=== PATIENT | male | born 1985 | race Caucasian/White ===

== ENCOUNTER → 2023-09-17 14:01 | Outpatient (BNVA) | payer BC, MEDICAID, SELFPAY | PROVIDERS: Family Provider Family Medicine; PCP Family Medicine; Visit Provider Podiatrist Foot & Ankle Surgery | DX: M25.572 Pain in left ankle and joints of left foot (principal); M25.372 Other instability, left ankle | CPT/HCPCS: 73610; 99203 ==

== ENCOUNTER 2023-11-25 10:03 | Outpatient (CLI) | payer BC, MEDICAID, SELFPAY ==
--- NOTE | 2023-11-25 10:15 | MR_ITS ---
WS: [id number] MRI LEFT ANKLE WITHOUT CONTRAST. COMPARISON: LEFT ankle radiograph 09/17/2023 Multiplanar, multisequence imaging is performed without contrast. No acute fracture or marrow edema. There is mild narrowing of the tibiotalar joint space. Normal synd esmosis. No osteochondral lesions. There is a very slight increased T2 signal of edema noted in the d istal fibular tip. No fracture. Increased T2 signal and a small cyst versus ganglion in the posterior talofibular ligament. Ligament is thickened with increased signal although not completely torn. Seen best on axial T1 sequence there is a probable small avulsion fracture from the distal anterior fibul a. This fracture is associated with the anterior talofibular ligament which appears partially torn an d avulsed. Increase striations in the deltoid ligament which are normal. The peroneal tendons normal course and caliber. No tenosynovitis. The Achilles tendon is normal. The flexor and extensor tendons tendons are normal. MR/MR ankle LT wo con* [id number] IMPRESSION: 1. Normal peroneal tendons. 2. Partial tear involving the anterior talofibular ligament and possible small evulsion fracture from the fibula. 3. Increased T2 signal and a possible ganglion in the posterior talofibular li gament. No complete tear. 4. No fractures. Very mild marrow edema in the distal fibular tip.
== END 2023-11-25 10:04 | disposition home or self-care (01) ==
LOC: RAD 10:03
PROVIDERS: Family Provider Family Medicine; PCP Family Medicine; Visit Provider Podiatrist Foot & Ankle Surgery
DX: M25.372 Other instability, left ankle (principal); S93.492A Sprain of other ligament of left ankle, initial encounter; X58.XXXA Exposure to other specified factors, initial encounter
CPT/HCPCS: 73721

== ENCOUNTER 2023-12-16 12:07 | Outpatient (CLI) | payer BC, MEDICAID, SELFPAY ==
--- NOTE | 2023-12-16 12:14 | MR_ITS ---
WS: [id number] MRI HEAD WITH CONTRAST TECHNIQUE: Sagittal T1, T2 axial, T2 axial FLAIR, axial susceptibility weighted imaging, axial diffus ion weighted images, and coronal T2 images were obtained. Pre and post-T1 axial and post T1 coronal i mages. ADC and FSPGR images. CLINICAL INFORMATION: PERSONAL HX OF TRAUMATIC BRAIN INJURY COMPARISON: None. FINDINGS: No evidence of restricted diffusion to suggest acute ischemia. Ventricular system and basal cisterns are patent. Normal holley-white differentiation. No suspicious intracranial signal normalities. Normal posterior fossa. Normal vascular flow voids at the skull base. No extra-axial fluid collections. No evidence of mass or mass effect. Paranasal sinuses and mastoid air cells are well aerated. No hemosiderin on susceptibility-weighted i mages. Normal optic chiasm and pituitary infundibulum. Temporal lobes and hippocampal formations are normal in appearance. No abnormal gadolinium enhancement. Incidental venous angioma in the RIGHT ante rior temporal lobe. Normal dural venous sinuses. No other suspicious findings. MR/MR head wo/w con [id number] IMPRESSION: 1. No evidence of restricted diffusion to suggest acute ischemia. 2. No suspicious intracranial signal abnormalities. Normal holley-white differen tiation. 3. No hemosiderin on susceptibility-weighted images. 4. No abnormal gadolinium enhancement. 5. Incidental venous angioma in the RIGHT anterior temporal lobe
[2023-12-16] MEDS: gadobenate dimeglumine 20 mL vial IV (12:46)
== END 2023-12-16 12:08 | disposition home or self-care (01) ==
LOC: RAD 12:07
PROVIDERS: Family Provider Family Medicine; PCP Family Medicine; Visit Provider Nurse Practitioner Occupational Health
DX: R56.9 Unspecified convulsions (principal); Z87.820 Personal history of traumatic brain injury; D18.02 Hemangioma of intracranial structures
CPT/HCPCS: 70553; A9577

== ENCOUNTER → 2024-05-12 15:08 | Outpatient (BNVA) | payer BC, MEDICAID, SELFPAY | PROVIDERS: Family Provider Family Medicine; PCP Family Medicine; Visit Provider Orthopaedic Surgery | DX: M54.9 Dorsalgia, unspecified (principal); M84.30XA Stress fracture, unspecified site, initial encounter for fracture; X58.XXXA Exposure to other specified factors, initial encounter | CPT/HCPCS: 72050; 72110 ==